=== PATIENT | female | born 1990 | race African-American/Black ===

== ENCOUNTER 2021-03-11 04:46 | Emergency (ER) | payer SELFPAY ==
[~2021-03-11] VITALS: Ht 182.9 cm; Wt 88.0 kg
[2021-03-11 05:54] VITALS: BP 128/78
[2021-03-11] MEDS ORDERED: IBUPROFEN 400MG TABLET PO ONE (06:00)
[2021-03-11] MEDS ORDERED: IBUP-2028 PO (06:47)
== END 2021-03-11 07:16 | disposition home or self-care (01) ==
LOC: ER 04:46
DX: S93.491A Sprain of other ligament of right ankle, initial encounter (principal); Y93.01 Activity, walking, marching and hiking; Y92.89 Other specified places as the place of occurrence of the external cause; J45.909 Unspecified asthma, uncomplicated; R03.0 Elevated blood-pressure reading, without diagnosis of hypertension
CPT/HCPCS: 73610; 99283